=== PATIENT | male | born 1990 | race Caucasian/White ===

== ENCOUNTER 2016-10-14 17:45 | Emergency (ER) | payer OTHER ==
[~2016-10-14] VITALS: Ht 165.1 cm; Wt 89.0 kg
[2016-10-14 17:48] VITALS: Ht 165.1 cm; Wt 89.0 kg
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
[2016-10-14] MEDS ORDERED: IBUPROFEN 600 MG TAB PO ONE (19:30)
[2016-10-14] MEDS ORDERED: HYDROCODONE/APAP (5/325) TAB PO ONE (19:30)
--- NOTE | 2016-10-14 20:10 | RADRPT ---
PROCEDURE: CT brain without contrast CLINICAL INDICATION: Loss of consciousness. Fall from 8 foot ladder on 10/13/2016 TECHNIQUE: A CT of the brain was performed utilizing axial sections from the skull base through th e vertex without contrast. Sagittal and coronal images were also reformatted. The exam CTDIvol = 44. 88 mGy and DLP = 720.23 mGy-cm. COMPARISON: None available FINDINGS: No acute intracranial hemorrhage is identified. There is no mass effect or midline shift. No extra -axial fluid collection is seen. The ventricles and sulci are within normal limits for size and con figuration. The density of the brain is within normal limits. Colin-white differentiation is preser celina. The osseous structures are unremarkable. The mastoid air cells and visualized paranasal sinuses are clear. RPTAT:HJJR IMPRESSION: Unremarkable noncontrast CT of the brain. Physician Nimesh Date Time Electronically viewed and signed by Physician Nimesh on 10/14/2016 20:10 /
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
[2016-10-14] MEDS ORDERED: HYDR-906 PO (20:30)
[2016-10-14] MEDS ORDERED: IBUP-1542 PO (20:30)
[2016-10-14] MEDS ORDERED: ORPH100T PO (20:30)
[2016-10-14 20:52] VITALS: BP 128/74; PULSE 60; RESP 18; TEMP 98.5
== END 2016-10-14 20:53 | disposition home or self-care (01) ==
LOC: FTE 17:45
DX: S19.9XXA Unspecified injury of neck, initial encounter (principal); R40.4 Transient alteration of awareness; W11.XXXA Fall on and from ladder, initial encounter; Y92.9 Unspecified place or not applicable
CPT/HCPCS: 70450; 72125; 93005; Z7502; Z7610

== ENCOUNTER 2017-02-24 21:33 | Emergency (ER) | payer OTHER ==
[~2017-02-24] VITALS: Ht 175.3 cm; Wt 82.5 kg
[~2017-02-24 21:33] MED LIST: HYDR-906 PO; IBUP-1542 PO; ORPH100T PO
[2017-02-24 21:37] VITALS: Ht 175.3 cm; Wt 82.5 kg
[2017-02-24] MEDS ORDERED: CEPH500C PO (22:11)
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
== END 2017-02-24 22:22 | disposition home or self-care (01) ==
LOC: FTE 21:33
DX: L72.3 Sebaceous cyst (principal); F17.210 Nicotine dependence, cigarettes, uncomplicated
CPT/HCPCS: 99283

== ENCOUNTER 2017-03-27 14:52 | Emergency (ER) | payer OTHER ==
[~2017-03-27] VITALS: Ht 152.4 cm; Wt 81.5 kg
[~2017-03-27 14:52] MED LIST changes: +CEPH500C PO
[2017-03-27 14:57] VITALS: Ht 152.4 cm; Wt 81.5 kg
[2017-03-27] MEDS ORDERED: ONDANSETRON (ODT) 4 MG TAB ODT STA (17:17)
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
[2017-03-27] MEDS ORDERED: RANITIDINE 150 MG TAB PO ONE (17:30)
[2017-03-27] MEDS ORDERED: AL HYDROX/MG HYDROX/SIMETH 30 ML CUP PO ONE (17:30)
[2017-03-27] MEDS ORDERED: MAG-19 PO (17:42)
[2017-03-27] MEDS ORDERED: RANI150T9 PO (17:42)
== END 2017-03-27 18:13 | disposition home or self-care (01) ==
LOC: FTE 14:52
DX: K21.9 Gastro-esophageal reflux disease without esophagitis (principal); F17.210 Nicotine dependence, cigarettes, uncomplicated
CPT/HCPCS: Z7502; Z7610; 99283